=== PATIENT | male | born 1950 | race Caucasian/White ===

== ENCOUNTER → 2017-04-10 | Day surgery (SDC) | payer MEDICARE, MEDICAID ==
[~2017-04-10] VITALS: Ht 167.6 cm; Wt 73.9 kg
[~2017-04-10] MED LIST: ACETAMINOPHEN 325MG TABLET PO PRN; ASPI-1159 PO; ASPIRIN/SOD BICARB/CITRIC ACID 324MG TAB EFF ONE; ATOR40TA70 PO; ATROPINE SULFATE 1MG/10ML SYR IV PRN; CEFAZOLIN 1000MG PREMIX 50 ML IV ONE; CHLO25TA27 GT; CLOP75TA33 PO; FENTANYL CITRATE/PF 50MCG/ML 2ML VIAL ONE; GABA-531 PO; HEPARIN SODIUM 1,000 UNIT/1ML VIAL IV ONE; IODIXANOL 320MG/ML 100 ML BOTTLE IV ONE; MIDAZOLAM HCL 2 MG/2 ML VIAL ONE; MORPHINE SULFATE 2 MG/ML CPJ (NOT FOR IM USE) IV PRN; MULT-1146 PO; ONDANSETRON HCL 4MG/2ML VIAL IV PRN
[2017-04-10 16:53] VITALS: BP 140/98
== END | disposition home or self-care (01) ==
LOC: CCL 06:42
PROVIDERS: ATTEND Specialist
DX: I73.9 Peripheral vascular disease, unspecified (principal); I11.9 Hypertensive heart disease without heart failure; E78.5 Hyperlipidemia, unspecified; J44.9 Chronic obstructive pulmonary disease, unspecified; E11.9 Type 2 diabetes mellitus without complications; B19.20 Unspecified viral hepatitis C without hepatic coma; F17.200 Nicotine dependence, unspecified, uncomplicated; Z79.82 Long term (current) use of aspirin; Z79.899 Other long term (current) drug therapy; Z82.49 Family history of ischemic heart disease and other diseases of the circulatory system
CPT/HCPCS: 36246; 75710; 82962; 99152; 99153; C1760; C1769; C1893; J0690; J1644; J2250; J2270; J2405; J3010; Q9967